=== PATIENT | male | born 1985 | race Caucasian/White ===

== ENCOUNTER 2017-11-02 14:06 | Emergency (ER) | payer SELFPAY ==
[~2017-11-02] VITALS: Ht 185.4 cm; Wt 74.2 kg
[2017-11-02 14:07] VITALS: BP 134/76; PULSE 89; RESP 16; TEMP 98.7; O2SAT 96
--- NOTE | 2017-11-02 14:36 | PD ---
HPI Chief Complaint: Musculoskeletal Complaint Time Seen by Provider: 14:24 Travel History International Travel<30 days: No Contact w/Intl Traveler<30days: No Traveled to known affect area: No History of Present Illness HPI This is a 32-year-old male here with right knee pain 5 days. He reports he has had pain in his knee over the last several years. Denies specific injury or trauma. No weakness or altered sensation in the extremity. No warmth or redness of the knee. Pain is worse with weightbearing and knee flexion. Relieved with rest. Symptom severity is mild to moderate. PFSH Past Medical History Diminished Hearing: No Migraines: Yes Social History Alcohol Use: Yes (OCC) Tobacco Use: Yes (1-2 PPD) Substance Use: Yes (MARIJUANA DAILY) Allergies-Medications (Allergen,Severity, Reaction): Coded Allergies: acetaminophen (Unverified Allergy, Mild, HIVES, 11/02/17) PT DENIES ON 06/06/14 codeine (Unverified Allergy, Mild, HIVES, 11/02/17) Reported Meds & Prescriptions Reported Meds & Active Scripts Active Review of Systems Except as stated in HPI: all other systems reviewed are Neg General / Constitutional: No: Fever Eyes: No: Visual changes HENT: No: Headaches Cardiovascular: No: Chest Pain or Discomfort Respiratory: No: Shortness of Breath Gastrointestinal: No: Abdominal Pain Physical Exam Narrative GENERAL: Alert and well-appearing 32-year-old male SKIN: Warm and dry. HEAD: Normocephalic. EYES: No scleral icterus. No injection or drainage. NECK: Supple RESPIRATORY: No accessory muscle use. GASTROINTESTINAL: Abdomen soft, non-tender, nondistended. MUSCULOSKELETAL: No cyanosis, or edema. RLE: Patient points to the medial aspect of the knee as the site of pain. There is no bony tenderness. No joint effusion. No laxity of the joint. Full range of motion. Palpable distal pulses. Normal sensation. Brisk cap refill. Data Data Last Documented VS Vital Signs Date Time Temp Pulse Resp B/P (MAP) Pulse Ox O2 Delivery O2 Flow Rate FiO2 11/02/17 14:07 98.7 89 16 134/76 (95) 96 Orders Orders Jon Bandage (11/02/17 14:37) MDM Medical Decision Making Medical Screen Exam Complete: Yes Emergency Medical Condition: Yes Differential Diagnosis Arthralgia, meniscal injury, medial collateral ligament sprain Narrative Course 32-year-old male here with right knee pain intermittently for the last 5 years. He has no bony tenderness. No joint effusion. Joint is stable. Extremity is neurovascularly intact. I suspect he has minor ligamental injury. Instructed to Jon wrap for support. Patient was referred [facility]. Diagnosis Primary Impression: Sprain and strain Referrals: Amy Price MD [facility] Additional Instructions: Jon wrap right knee for support. Ibuprofen 800 mg every 6 hours for pain and swelling. Follow-up with the [facility] or [facility] Disposition: 01 DISCHARGE HOME Condition: Stable Angie Casillas Nov 02, 2017 14:36
== END 2017-11-02 15:25 | disposition home or self-care (01) ==
LOC: PHEFT 14:06
DX: S83.91XA Sprain of unspecified site of right knee, initial encounter (principal); S86.911A Strain of unspecified muscle(s) and tendon(s) at lower leg level, right leg, initial encounter; X58.XXXA Exposure to other specified factors, initial encounter; F17.200 Nicotine dependence, unspecified, uncomplicated; F12.90 Cannabis use, unspecified, uncomplicated
CPT/HCPCS: 99282